=== PATIENT | male | born 1990 | race Caucasian/White ===

== ENCOUNTER 2020-07-25 20:25 | Emergency (ER) | payer MEDICAID, SELFPAY ==
[2020-07-25 20:26] VITALS: BP 132/60; PULSE 55; RESP 16; TEMP 36.5; O2SAT 100; BMI 22.1
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
[2020-07-25 21:25] VITALS: RESP 14
[2020-07-25 21:36] LABS: Absolute Lymphocyte Count 3.42 X10^3/uL (0.83-4.51); Absolute Neutrophil Count 3.7 X10^3/uL (2.0-7.7); Basophil# 0.08 X10^3/uL; Basophil% 0.9 % (0-1); Eosinophil# 0.49 X10^3/uL; Eosinophils% 5.6 % (0-5); Hematocrit 47.2 % (40-54); Hemoglobin 13.6 g/dL (13.0-16.5); Lymphocyte # 3.42 X10^3/ul (4.0); Lymphocyte % 38.9 % (19-41); Mean Corp Hgb Conc 28.8 g/dL (32-36); Mean Corpuscular Hgb 19.9 pg (27.0-32.0); Mean Platelet Vol. 11.5 fl (6.2-12.0); Monocyte% 12.5 % (0-10); NRBC Flagged by Analyzer 0 % (0-5); Neutrophil # 3.67 X10^3/uL (2.7-7.7); Neutrophil % 41.8 % (47-70); Platelet Count 336 K/mm3 (150-450); RBC Distribution Width CV 18.6 % (11.6-14.6); RBC Distribution Width SD 39.7 fl (35.1-43.9); Red Blood Count 6.84 M/mm3 (4.6-6.2); White Blood Count 8.8 K/mm3 (4.4-11.0)
[2020-07-25 22:00] VITALS: RESP 16
[2020-07-25 22:00] LABS: Anion Gap 5 (5-15); BUN 13 mg/dL (7-18); BUN/Creat Ratio 12.5 RATIO (10-20); Calcium,Total 8.9 mg/dL (8.5-10.1); Chloride 106 mmol/L (98-107); Creatinine, Serum 1.04 mg/dL (0.70-1.30); EST Glomerular Filtration Rate 89 mL/min (>60); Est Glom Filt Rate - Afr Amer 108 mL/min (>60); Estimated Creatinine Clearance 100.86 ml/min; Glucose 103 mg/dL (74-106); Potassium 3.6 mmol/L (3.5-5.1); Sodium Level 140 mmol/L (136-145)
[2020-07-25 22:01] LABS: Amphetamine Urine VISTA POSITIVE (<1000 ng/mL); Barbiturate Urine VISTA NEGATIVE (< 200 ng/mL); Benzodiazepine Urine VISTA NEGATIVE (< 200 ng/mL); Cocaine Urine VISTA NEGATIVE (< 300 ng/mL); Ecstacy Urine VISTA POSITIVE (< 500 ng/mL); Methadone Urine VISTA NEGATIVE (< 300 ng/mL); PCP Urine VISTA NEGATIVE (< 25 ng/mL); THC Urine VISTA POSITIVE (< 50 ng/mL); Vista UDS pH Range 6
--- NOTE | 2020-07-25 22:41 | ED.RN ---
CALLED CRISIS TO SEE THIS PT, WAITING ON A CALL BACK
[2020-07-26 00:42] VITALS: BP 133/85; PULSE 71; RESP 18; O2SAT 98
[2020-07-26 01:00] VITALS: RESP 14
[2020-07-26 02:00] VITALS: RESP 16
--- NOTE | 2020-07-26 02:12 | EKG12_ITS ---
Test Reason : MENTAL HEALTH Blood Pressure : / mmHG Vent. Rate : 063 BPM Atrial Rate : 063 BPM P-R Int : 130 ms QRS Dur : 094 ms QT Int : 416 ms P-R-T Axes : 071 079 072 degrees QTc Int : 425 ms Sinus rhythm with marked sinus arrhythmia Otherwise normal ECG Confirmed by VIV PEGUERO, JOSE GUADALUPE ([id number]), subeditor KIRK WINTER ([id number]) on 07/30/2020 9:52:02 AM Referred By: BB Confirmed By:JOSE GUADALUPE NAM MD
--- NOTE | 2020-07-26 02:18 | ED.RN ---
CRISIS WORKING ON PLACEMENT, GENERATIONS REQUESTED KEG, COVID, AND CPK TESTING. RELAYED TO [facility] AND REQUIRED DEPARTMENTS.
[2020-07-26 02:35] LABS: CPK Total, Creatine Kinase 66 U/L (39-308)
[2020-07-26 03:00] VITALS: RESP 14
[2020-07-26 06:00] VITALS: BP 138/90; PULSE 65; RESP 14; TEMP 36.1; O2SAT 100
== END 2020-07-26 07:28 ==
PROVIDERS: Emergency Medicine; Emergency Provider Emergency Medicine
DX: R45.851 Suicidal ideations (principal); F17.200 Nicotine dependence, unspecified, uncomplicated
CPT/HCPCS: 80048; 80307; 80320; 82550; 85025; 87635; 93005; 99284; G0480; U0003

== ENCOUNTER 2020-09-22 18:47 | Emergency (ER) | payer MEDICAID, SELFPAY ==
[2020-09-22 18:50] VITALS: BP 143/91; PULSE 98; RESP 16; TEMP 37; O2SAT 98; BMI 21.4
--- NOTE | 2020-09-22 19:30 | ED.VIS.GEN ---
History of Present Illness Chief Complaint: Ear Problem Detail of Chief Complaint: Bilateral ear pain Informant: Patient Onset: Month(s) - Greater than 1 year Current Severity: Moderate Maximum Severity: Moderate Narrative: Patient presents with bilateral ear pain for greater than 1 year. He states he has not seen a doctor for this. He denies respiratory symptoms. He is very elusive when answering questions. He does report using Q-tips to clean his ears but states he is not used those in several days. He states his ear should not still be inflamed. Past Medical History - Allergies and Home Meds Allergies/Adverse Reactions: Allergies No Known Allergies Allergy (Verified 09/22/20 18:49) Primary Care Physician: Care Physician,No Primary [Primary Care Provider] - Past Medical History: None Smoking Status: Current every day smoker Review of Systems General: Denies: Chills, Fever Eyes: Denies: Visual changes - bilaterally ENT: Reports: Bilateral ear pain Cardiovascular: Denies: Chest pain Respiratory: Denies: Dyspnea, Cough Gastrointestinal: Denies: Abdominal pain Musculoskeletal: Denies: Extremity Pain Skin: Denies: Wounds Neurological: Denies: Headache Hematologic: Denies: Easy bruising, Easy bleeding Allergy: Denies: Uticaria Physical Exam Vital Signs/Narrative: Vital Signs Temp Pulse Resp BP Pulse Ox 09/22/20 18:50 98.6 F 98 16 143/91 H 98 Inital Vital Signs reviewed: Yes General: Well nourished, Well developed Head: Normocephalic Eyes: Perrl, EOMI, - - Ear canals are slightly erythematous bilaterally. No significant edema. TMs are clear bilaterally. ENT: Moist mucous membranes Neck: Supple Cardiovascular: Regular rate, Regular rhythm Respiratory: No distress, CTA bilaterally Abdomen: Soft, Nontender Skin: Normal color Neurological: Alert, Oriented x3 Psychological: Normal affect Diagnostic/Tx/Re-eval - Medical Decision Making Patient has mild erythema to the bilateral ear canals. No sign of otitis media. He will be given neomycin eardrops. He is requesting a doctor look in his ear to the microscope and remove what ever is in there that needs to come out. I advised him at this time there is no evidence of foreign body or mass. We will treat him with antibiotic eardrops and have him follow-up with ENT if not improving. ED Disposition - Plan for ED Patient: Disposition: Home or Assisted Living Diagnosis: Otalgia of both ears Instructions: ED Earache Without Infection (Adult) Referrals: Naif Booth MD [STAFF PHYSICIAN] - 1 Week if not improving Additional Instructions: 4 drops to each ear three times a day for 1 week.
[2020-09-22] MEDS: Neomycin/Polymyxin/Dexameth 5ML OPTH.BTL 4 DRP OTIC (20:05)
== END 2020-09-22 20:16 | disposition home or self-care (01) ==
PROVIDERS: Emergency Provider Emergency Medicine
DX: H92.03 Otalgia, bilateral (principal); F17.200 Nicotine dependence, unspecified, uncomplicated
CPT/HCPCS: 99282

== ENCOUNTER 2020-09-22 21:00 | Emergency (ER) | payer MEDICAID, SELFPAY ==
[2020-09-22 18:50] VITALS: BMI 21.4
[2020-09-22 21:01] VITALS: BP 143/90; PULSE 85; RESP 16; TEMP 36.6; O2SAT 100; BMI 21.1
--- NOTE | 2020-09-22 21:27 | ED.RN ---
Pt states he hears voices and sometimes sees things. When asked if they (voices) say things, pt is very vague in his answers and states they sometimes say things here and there.
--- NOTE | 2020-09-22 21:59 | ED.VISSUMM ---
- ER Visit Summary Date of Service: 09/22/20 Chief Complaint: Hearing voices History of Present Illness: The patient is a 30 M with no primary care physician or psychiatrist. He reports that he has been hearing voices for approximate the past 14 months. He states that these are not command hallucinations. He denies any suicidal homicidal ideation. Reports that he was hospitalized approximately 1 month ago and was placed on trazodone, Abilify, BuSpar, and Vistaril and it did not help so he stopped taking them. He has not followed up with the counseling center. Physical Examination: Vitals: Stable. Afebrile. General: Well-nourished and well-developed. Head: Normocephalic atraumatic. Neck: Supple, no lymphadenopathy. No JVD. Nontender. Cardiovascular: Regular rate and rhythm. No murmurs. Respiratory: No respiratory distress. Clear to auscultation bilaterally. Abdominal: Soft, nontender, nondistended, normal bowel sounds. No guarding, rebound, or peritoneal signs. Back: Nontender. Extremities: Nontender, no edema. Skin: Normal color, no rash. Neurologic: Alert and oriented ?3. Cranial nerves II through XII are intact. Normal strength and sensation. Mental status exam: Patient appears their stated age. Good posture and grooming. Good eye contact. Normal rate, volume, and latency of speech. No suicidal or homicidal ideation. No visual hallucinations. Flow of thought is logical. Insight and judgment is fair. Emergency Department Course and Treatment: Patient is resting comfortably without complaint. Treatment Plan: Patient was discussed with the counseling center. At this time he does not seem to be a threat to himself or anyone else. He will be discharged with instructions to follow-up with them as soon as possible. Return to the emergency department for any worsening symptoms. Disposition: To home in improved and stable condition. Impression: 1. Auditory hallucinations. This note was generated with [employer] dictation software. It may contain incorrect words, spelling, and punctuation that were not noted in review of the chart prior to signing ED Disposition - Plan for ED Patient: Disposition: Home or Assisted Living Instructions: ED Schizophrenia, General Referrals: Counseling,Center [GROUP OF PHYSICIANS] - As soon as possible
== END 2020-09-22 22:51 | disposition home or self-care (01) ==
LOC: ED 21:30
PROVIDERS: Emergency Provider Emergency Medicine
DX: R44.0 Auditory hallucinations (principal); H92.03 Otalgia, bilateral; F17.200 Nicotine dependence, unspecified, uncomplicated
CPT/HCPCS: 99282

== ENCOUNTER 2021-01-10 10:10 | Emergency (ER) | payer MEDICAID, SELFPAY ==
[2021-01-10 10:12] VITALS: BP 129/92; PULSE 93; RESP 16; TEMP 36.7; O2SAT 100; BMI 23.6
--- NOTE | 2021-01-10 10:46 | EKG12_ITS ---
Test Reason : SORE THROAT Blood Pressure : / mmHG Vent. Rate : 067 BPM Atrial Rate : 067 BPM P-R Int : 144 ms QRS Dur : 094 ms QT Int : 420 ms P-R-T Axes : 076 057 057 degrees QTc Int : 443 ms Normal sinus rhythm with sinus arrhythmia Normal ECG Confirmed by VIV PEGUERO, JOSE GUADALUPE ([id number]), legal editor KIRK WINTER ([id number]) on 01/13/2021 8:52:14 AM Referred By: CARMELO Confirmed By:JOSE GUADALUPE NAM MD
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
[2021-01-10 11:15] LABS: Absolute Lymphocyte Count 3.12 X10^3/uL (0.83-4.51); Basophil# 0.11 X10^3/uL; Basophil% 1.3 % (0-1); Eosinophil# 0.36 X10^3/uL; Eosinophils% 4.2 % (0-5); Hematocrit 50.7 % (40-54); Hemoglobin 14.7 g/dL (13.0-16.5); Lymphocyte # 3.12 X10^3/ul (4.0); Lymphocyte % 36.6 % (19-41); Mean Corpuscular Hgb 19.9 pg (27.0-32.0); Mean Corpuscular Volume 68.6 fL (80-94); Mean Platelet Vol. 9.9 fl (6.2-12.0); Monocyte# 0.86 X10^3/uL; Monocyte% 10.1 % (0-10); NRBC Flagged by Analyzer 0 % (0-5); Neutrophil # 4.01 X10^3/uL (2.7-7.7); Neutrophil % 47.1 % (47-70); Platelet Count 394 K/mm3 (150-450); RBC Distribution Width CV 17.4 % (11.6-14.6); Red Blood Count 7.39 M/mm3 (4.6-6.2); White Blood Count 8.5 K/mm3 (4.4-11.0)
--- NOTE | 2021-01-10 11:20 | RAD_ITS ---
STUDY: X-RAY CHEST REASON FOR EXAM: Male, 30 years old. cough TECHNIQUE: Single AP portable view of the chest. COMPARISON: None. FINDINGS: The lungs are clear and expanded. There is no demonstrated pleural abnormality. Normal size heart. Normal mediastinum and micheline. Normal visualized pulmonary arteries. Normal visualized aortic arch and descending thoracic aorta. Normal visualized thoracic spine. Normal visualized ribs, clavicles, and shoulders. There is no demonstrated abnormality of the visualized soft tissue structures of the upper abdomen. RAD/Chest 1 View (Portable) IMPRESSION: Normal x-ray examination of the chest. Electronically Signed: Lyle Schmid MD at 11:40 EDT Tel , Service support ,
--- NOTE | 2021-01-10 11:20 | RAD_ITS ---
STUDY: X-RAY - SOFT TISSUE NECK REASON FOR EXAM: Male, 30 years old. sore throat TECHNIQUE: 2 view(s) of the neck were obtained. COMPARISON: None. FINDINGS: Normal visualized nasopharynx, oropharynx, hypopharynx. Normal epiglottis. Normal visualized subglottic tracheal air column. Normal prevertebral soft tissue structures. Normal visualized osseous structures. The soft tissue structures are unremarkable. RAD/Neck for Soft Tissue IMPRESSION: Normal x-ray soft tissue neck. Electronically Signed: Lyle Schmid MD at 11:40 EDT Tel , Service support ,
[2021-01-10 11:36] LABS: AST(SGOT) 75 U/L (15-37); Alanine Aminotransfer ALT/SGPT 250 U/L (16-61); Albumin, Serum 4.2 g/dL (3.2-5.0); Alkaline Phosphatase 103 U/L (45-117); Anion Gap 3 (5-15); BUN 13 mg/dL (7-18); BUN/Creat Ratio 11.2 RATIO (10-20); Calcium,Total 9.1 mg/dL (8.5-10.1); Chloride 104 mmol/L (98-107); Creatinine, Serum 1.16 mg/dL (0.70-1.30); EST Glomerular Filtration Rate 78 mL/min (>60); Est Glom Filt Rate - Afr Amer 95 mL/min (>60); Estimated Creatinine Clearance 93.12 ml/min; Globulin 4.1 g/dL (2.2-4.2); Glucose 94 mg/dL (74-106); Lipase 29 U/L (73-393); Potassium 3.7 mmol/L (3.5-5.1); Protein, Total 8.3 g/dL (6.4-8.2); Sodium Level 137 mmol/L (136-145)
--- NOTE | 2021-01-10 12:05 | DCINST.ED_ITS ---
ED Disposition - Plan for ED Patient: Instructions: ED Pharyngitis, Viral Referrals: Cj Ricketts WATERSHED ENGINEER, WATERSHED ENGINEER-C [Primary Care Provider] -
--- NOTE | 2021-01-10 12:05 | ED.DEP ---
ED Disposition - Plan for ED Patient: Instructions: ED Pharyngitis, Viral Referrals: Cj Ricketts SOLE ROUNDING MACHINE OPERATOR, SOLE ROUNDING MACHINE OPERATOR-C [Primary Care Provider] -
[2021-01-10 12:20] VITALS: BP 139/95; PULSE 58; RESP 15
[2021-01-10] MEDS: dexAMETHasone 4 MG Tablet PO (12:20)
== END 2021-01-10 12:23 | disposition home or self-care (01) ==
LOC: ED 11:41
PROVIDERS: Emergency Provider Emergency Medicine; PCP Nurse Practitioner Primary Care
DX: J02.9 Acute pharyngitis, unspecified (principal); F17.200 Nicotine dependence, unspecified, uncomplicated; Z87.74 Personal history of (corrected) congenital malformations of heart and circulatory system
CPT/HCPCS: 70360; 71045; 80053; 83690; 84484; 85025; 87077; 87426; 87880; 93005; 99282

== ENCOUNTER 2021-06-11 21:54 | Emergency (ER) | payer MEDICAID, SELFPAY ==
[2021-06-11 21:55] VITALS: BP 148/89; PULSE 85; RESP 18; TEMP 36.5; O2SAT 99; BMI 23.6
[2021-06-11 22:13] LABS: Bacteria 0 SEEN /hpf (None Seen); Mucous, Urine 0 SEEN /hpf (<or=2+); Red Blood Cells-Urine 0 SEEN /hpf (0-5); Squamous Epithelial Cells - UA 0 SEEN /hpf (0-5); White Blood Cells 0 SEEN /hpf (0-5)
[2021-06-11 22:17] LABS: Color, Urine Yellow (Yellow); Glucose, Dipstick Normal (Normal); Ketone-Dipstick Negative (Negative); Leukocyte Esterase-Dipstick 25 /ul (Negative); Nitrite-Dipstick Negative (Negative); Occult Blood-Urine Negative /ul (Negative); Protein-Dipstick 15 mg/dl (Negative); Urine Bilirubin Dipstick Negative (Negative); Urine Clarity Clear (Clear); Urine Urobilinogen Normal (Normal)
--- NOTE | 2021-06-11 23:50 | EX.ED.GUMALE ---
HPI History of Present Illness Chief Complaint: Male Pain/Injury Informant: patient Pain Onset: Month(s) (1+) Context: - (unk onset) Timing: Continuous Narrative Narrative: Patient states he feels like something is moving around in my scrotum. He denies any pain, problems urinating, fevers, abdominal pain. He denies any injury. He denies any hematuria. He states he occasionally feels the scrotum and something feels different and abnormal about it. PFSH PFSH no medical history Home Medications buspirone 15 mg PO BID 01/10/21 [History Last Taken Unknown] hydroxyzine pamoate 100 mg PO BID PRN 01/10/21 [History Last Taken Unknown] trazodone 50 mg PO QHS 01/10/21 [History Last Taken Unknown] Allergy/AdvReac Type Severity Reaction Status Date / Time No Known Allergies Allergy Verified 06/11/21 21:57 Social History Smoking Status: Current every day smoker ROS ROS ED Constitutional Constitutional ED: Denies chills or fever(s) Eyes Eyes: Denies change in vision or diplopia ENT ENT ED: Denies rhinorrhea or sore throat Cardiovascular Cardiovascular: Denies chest pain or palpitations Respiratory/Chest Respiratory/Chest: Denies cough or dyspnea Gastrointestinal Gastrointestinal: Denies abdominal pain, diarrhea, nausea or vomiting Genitourinary Genitourinary ED: Reports as per HPI; Denies dysuria or hematuria Musculoskeletal Musculoskeletal: Denies back pain or neck pain Integumentary Denies abscess or rash Neurologic Neurologic: Denies headache(s), paresthesias or weakness Psychiatric Psychiatric: Denies anxiety or suicidal thoughts EXAM Physical Exam Const Vital Signs: 06/11/21 21:55 Temperature 97.7 F L Temperature Source Temporal Pulse Rate 85 Respiratory Rate 18 Blood Pressure 148/89 H Blood Pressure Mean 108 Pulse Ox 99 Oxygen Delivery Method Room Air Positive well nourished and well developed General Appearance ED: well developed and NAD Neck full ROM and supple Narrative: Normal scrotum. Normal nontender testicles. Normal nontender epididymis bilaterally. No palpable mass or hydrocele, the discomfort patient feels is central in the scrotum between the testicles. No overlying erythema, blue dot sign, or obvious palpable mass. Neuro oriented x3, CN's II-XII intact bilaterally and no sensory deficits noted Sensorium / Orientation: awake and alert Motor Exam: strength 5/5 throughout Skin no rashes or lesions noted and no wounds MDM MDM MDM Narrative Medical decision making narrative: Patient states he wants an ultrasound. In my opinion this is not an emergent condition, I basically feel that his exam is normal. I saw him right before ultrasound the left and I think it would be reasonable to set him up for an outpatient 1, he also needs an outpatient PCP. He is set up for both. Lab Data Labs: Laboratory Results - last 24 hr 06/11/21 22:08 Urine Color Yellow Urine Clarity Clear Urine pH 6.0 Ur Specific [place] 1.020 Urine Protein 15 H Urine Glucose (UA) Normal Urine Ketones Negative Urine Occult Blood Negative Urine Nitrite Negative Urine Bilirubin Negative Urine Urobilinogen Normal Ur Leukocyte Esterase 25 H Urine RBC 0 SEEN Urine WBC 0 SEEN Ur Squamous Epith Cells 0 SEEN Urine Bacteria 0 SEEN Urine Mucus 0 SEEN Discharge Plan Triage Chief Complaint: Male Pain/Injury ED Provider: Jeremie Castillo Dx/Rx/DC Orders Clinical Impression: Scrotal pain Instructions: Treating Varicocele Prescriptions: No Action trazodone 50 MG tablet 50 mg PO QHS RF: 0 hydroxyzine pamoate 50 MG capsule 100 mg PO BID PRN RF: 0 buspirone 15 MG tablet 15 mg PO BID RF: 0 Other Ambulatory Orders: Testicular with Arterial Flow (Routine) Timeframe: 1 Day Facility: [facility] - Location: [facility] Ordered By: Dr. Jeremie Castillo Primary Care Provider: Care Physician,No Primary Referrals: Coral Geronimo MD [STAFF PHYSICIAN] - (for primary care) Care Physician,No Primary [Primary Care Provider] - Disposition Disposition: Home, Self Care
--- NOTE | 2021-06-12 00:05 | ED.RN ---
PT walked out after registration. merchandise clerk attempted to keep PT into room for discharge instructions but was unable.
== END 2021-06-12 00:05 | disposition home or self-care (01) ==
PROVIDERS: Emergency Provider Emergency Medicine
DX: N50.82 Scrotal pain (principal); F17.200 Nicotine dependence, unspecified, uncomplicated
CPT/HCPCS: 81001; 99282

== ENCOUNTER 2021-08-27 15:09 | Emergency (ER) | payer MEDICAID, SELFPAY ==
[2021-08-27 15:10] VITALS: BP 138/85; PULSE 83; RESP 17; TEMP 36.1; O2SAT 100; BMI 23.0
--- NOTE | 2021-08-27 15:19 | EX.ED.DYSGE1 ---
HPI History of Present Illness Chief Complaint: General Illness Informant: patient Narrative Narrative: 30-year-old male states for the past several days has had a loss of smell and taste. He notes a slight cough and sore throat. Denies any diarrhea fevers or chills. Slight headache. He is not vaccinated against Covid. He occasionally smokes. PFSH PFSH Home Medications buspirone 15 mg PO BID 01/10/21 [History Last Taken Unknown] hydroxyzine pamoate 100 mg PO BID PRN 01/10/21 [History Last Taken Unknown] trazodone 50 mg PO QHS 01/10/21 [History Last Taken Unknown] Allergy/AdvReac Type Severity Reaction Status Date / Time No Known Allergies Allergy Verified 08/27/21 15:10 Social History (Updated 08/27/21 @ 15:[address] Amado Cm, DO) current gender identity: male Smoking Status: Current every day smoker tobacco type: cigarettes ROS ROS ED Constitutional Constitutional ED: Denies chills, fever(s), sweats or weight loss Eyes Eyes: Denies change in vision or diplopia ENT ENT ED: Reports sore throat; Denies ear pain or rhinorrhea Cardiovascular Cardiovascular: Denies chest pain, orthopnea, palpitations or racing heartbeat Respiratory/Chest Respiratory/Chest: Reports cough; Denies dyspnea or orthopnea Gastrointestinal Gastrointestinal: Denies abdominal pain, diarrhea, nausea or vomiting Genitourinary Genitourinary ED: Denies dysuria, hematuria or urinary frequency Musculoskeletal Musculoskeletal: Reports myalgias; Denies arthralgias Integumentary Denies abscess or rash Neurologic Neurologic: Reports headache(s); Denies weakness Psychiatric Psychiatric: Denies anxiety, depression, suicidal ideation or suicidal thoughts Endocrine Endocrinology: Denies polydipsia, polyphagia or polyuria Allergic/Immunologic Allergic/Immunologic ED: Denies mouth swelling, tongue swelling or urticaria EXAM Physical Exam Const Vital Signs: 08/27/21 15:10 Temperature 97.0 F L Temperature Source Temporal Pulse Rate 83 Respiratory Rate 17 Blood Pressure 138/85 H Blood Pressure Mean 102 Pulse Ox 100 Oxygen Delivery Method Room Air Positive well nourished and well developed General Appearance ED: well developed HEENT Reports normocephalic, head/scalp atraumatic, TM's clear and moist mucous membranes trauma Tympanic Membrane ED: Yes TM's clear Eyes PERRL and EOMs intact bilaterally Neck no lymphadenopathy, supple and no JVD Resp normal respiratory effort and clear to auscultation bilaterally Cardio regular rate, regular rhythm and no murmurs GI normal to inspection, nondistended, normoactive bowel sounds and non-tender Palpation: soft Back/Spine no CVA tenderness and normal ROM Extremity normal to inspection General Extremety ED: Negative for edema General Extremity: Negative for edema Neuro oriented x3 and CN's II-XII intact bilaterally Sensorium / Orientation: alert Motor Exam: strength 5/5 throughout Psych mental status grossly normal Mood & Affect: Negative for depressed or tearful Skin no rashes or lesions noted and no wounds MDM MDM MDM Narrative Medical decision making narrative: My interpretation of the chest x-ray is no acute process. Covid swab was obtained Discharge Plan Triage Chief Complaint: General Illness ED Provider: Amado Cm Dx/Rx/DC Orders Prescriptions: No Action trazodone 50 MG tablet 50 mg PO QHS RF: 0 hydroxyzine pamoate 50 MG capsule 100 mg PO BID PRN RF: 0 buspirone 15 MG tablet 15 mg PO BID RF: 0 Primary Care Provider: Care Physician,No Primary
--- NOTE | 2021-08-27 15:30 | RAD_ITS ---
STUDY: X-RAY CHEST REASON FOR EXAM: Male, 30 years old. Cough TECHNIQUE: Single AP portable view of the chest. COMPARISON: Comparison is made with prior study 01/10/2021. FINDINGS: The lungs are clear and expanded. There is no demonstrated pleural abnormality. Normal size heart. Normal mediastinum and micheline. Normal visualized pulmonary arteries. Normal visualized aortic arch and descending thoracic aorta. Normal visualized thoracic spine. Normal visualized ribs, clavicles, and shoulders. There is no demonstrated abnormality of the visualized soft tissue structures of the upper abdomen. RAD/Chest 1 View (Portable) IMPRESSION: Normal x-ray examination of the chest. Electronically Signed: Wyatt Ring MD at 15:42 EDT , Service support ,
[2021-08-27 16:23] VITALS: RESP 16
--- NOTE | 2021-08-27 16:23 | ED.RN ---
REVIEWED D/C INSTRUCTIONS, FOLLOW UP CARE, AND S/S THAT WOULD WARRANT A RETURN TO THE ED WITH PT. PT VERBALIZED AN UNDERSTANDING AND DENIES FURTHER QUESTIONS FOR THIS RN. PT SKIN P/W/D, RESP EVEN AND UNLABORED, PT A&O X 3, NO DISTRESS NOTED. PT AMBULATED OUT OF ED, GAIT STEADY.
== END 2021-08-27 16:24 | disposition home or self-care (01) ==
PROVIDERS: Emergency Provider Emergency Medicine
DX: R43.8 Other disturbances of smell and taste (principal); R05.9 Cough, unspecified; J02.9 Acute pharyngitis, unspecified; F17.210 Nicotine dependence, cigarettes, uncomplicated
CPT/HCPCS: 71045; 87426; 99282

== ENCOUNTER 2021-09-01 09:04 | Emergency (ER) | payer MEDICAID, SELFPAY ==
[2021-09-01 09:06] VITALS: BP 146/91; PULSE 81; RESP 18; TEMP 35.6; O2SAT 100; BMI 21.5
--- NOTE | 2021-09-01 10:25 | EX.ED.DYSGE1 ---
HPI History of Present Illness Chief Complaint: Lower Extremity Injury Detail of Chief Complaint: Mental health issue Informant: patient Onset/Context/Timing Onset: Today Context: Gradual Onset Timing: Continuous Current Severity: Mild Maximum Severity: Mild Narrative Narrative: 30-year-old male states that either his appendix or spleen is ruptured and is leaking fluid into his legs. He believes his feet are necrotic and need eventual surgery. On exam the patient has no medical issue this appears to be a mental health issue. Prior similar symptoms: No Recent Illness/Hospitalization: No PFSH PFSH Home Medications buspirone 15 mg PO BID 01/10/21 [History Last Taken Unknown] hydroxyzine pamoate 100 mg PO BID PRN 01/10/21 [History Last Taken Unknown] trazodone 50 mg PO QHS 01/10/21 [History Last Taken Unknown] Allergy/AdvReac Type Severity Reaction Status Date / Time No Known Allergies Allergy Verified 09/01/21 10:45 Social History Smoking Status: Current every day smoker tobacco type: cigarettes ROS ROS ED ROS Narrative Denies recent illness. Review of Systems ROS Unobtainable: Denies due to encephalopathy Constitutional Constitutional ED: Denies chills or fever(s) Eyes Eyes: Denies change in vision ENT ENT ED: Denies ear pain or sore throat Cardiovascular Cardiovascular: Denies chest pain Respiratory/Chest Respiratory/Chest: Denies cough or dyspnea Gastrointestinal Gastrointestinal: Denies abdominal pain, diarrhea, nausea or vomiting Genitourinary Genitourinary ED: Denies dysuria Musculoskeletal Musculoskeletal: Denies myalgias Integumentary Denies rash Neurologic Neurologic: Denies headache(s) Psychiatric Psychiatric: Denies depression, suicidal ideation or suicidal thoughts Endocrine Endocrinology: Denies polyuria Allergic/Immunologic Allergic/Immunologic ED: Denies urticaria EXAM Physical Exam Narrative Exam Narrative: 30-year-old male no acute distress vital signs stable afebrile. He does not look septic or toxic. His pulse ox 9% on room air no hypoxia. H EENT exam unremarkable. Moist his membranes. No trauma. Neck nontender no trauma. No lymphadenopathy. Lungs clear to auscultation bilaterally. Heart regular rhythm no murmur rate about 80. Chest wall nontender. Abdomen soft nontender. He is moving all 4 extremities are neurovascularly intact. They are nontender there is no edema. 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 He has normal DP pulses bilaterally. Back nontender. Skin unremarkable except multiple tattoos. Neurologically is awake and alert with no focal motor deficits. Patient has an odd affect. Consistent with underlying psychiatric illness. Const Vital Signs: 09/01/21 09:06 Temperature 96.1 F L Temperature Source Temporal Pulse Rate 81 Respiratory Rate 18 Blood Pressure 146/91 H Blood Pressure Mean 109 Pulse Ox 100 Oxygen Delivery Method Room Air Positive well nourished and well developed; Negative for obese, cachectic, contractures or unkempt General Appearance ED: well developed and NAD; Negative for unkempt, cachectic, contractures, cyanotic or diaphoretic Nutritional Appearance: Negative for cachectic or obese HEENT Reports moist mucous membranes Negative for trauma or tenderness Eyes PERRL and EOMs intact bilaterally Neck no lymphadenopathy, supple and no JVD General: Negative for tenderness Chest Wall inspection of chest normal and palpation of chest normal Resp normal respiratory effort and clear to auscultation bilaterally Effort and Inspection: pain with movement Auscultation: Negative for rales, rhonchi or wheezes Cardio regular rate, regular rhythm, S1 normal heart sound, S2 normal heart sound and no murmurs Rate: Negative for tachycardic GI normal to inspection, nondistended, normoactive bowel sounds, non-tender, non-distended and no masses Inspection: Negative for abdominal distention Auscultation: normoactive bowel sounds Palpation: soft; Negative for tender, guarding or rebound tenderness present Back/Spine no CVA tenderness Cervical Spine: Negative for cervical spine tenderness Thoracic Spine / Upper Back: Negative for thoracic spinal tenderness or paraspinal muscle tenderness Lumbar Spine / Lower Back: Negative for lumbar spinal tenderness Extremity normal to inspection General Extremety ED: Negative for edema or tenderness General Extremity: Negative for edema Neuro oriented x3, CN's II-XII intact bilaterally and no sensory deficits noted Sensorium / Orientation: alert; Negative for orientation impaired, lethargic or stuporous Motor Exam: strength 5/5 throughout Psych mental status grossly normal Psych Narrative: Patient appears to have underlying psychiatric illness. Appearance: Negative for unkempt Mood & Affect: Negative for depressed, anxious or tearful Skin no rashes or lesions noted and no wounds MDM MDM MDM Narrative Medical decision making narrative: 30-year-old male that believes his spleen or appendix is ruptured or leaking fluid in his legs and believes he needs emergent foot surgery. His exam is benign. This appears to be underlying psychiatric illness or related to drug use but he denies using drugs other than smoking marijuana. I will have our social service agency director speak with the patient. Patient the social service agency director went and evaluated the patient a left without being discharged. 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 Lab Data Attestation: I reviewed the patient's lab results. Lab results narrative: CBC White count 13.9. Hemoglobin 13.8. Electrolytes unremarkable gap of 6 normal BUN and creatinine. Glucose 107. Tox screen negative except positive for amphetamines and methamphetamines. Alcohol is negative. Labs: Laboratory Results - last 24 hr 09/01/21 09/01/21 09/01/21 10:57 11:07 11:07 WBC 13.9 H RBC 6.81 H Hgb 13.8 Hct 45.7 MCV 67.1 L MCH 20.3 L MCHC 30.2 L RDW Std Deviation 36.2 RDW Coeff of Pravin 16.8 H Plt Count 341 MPV 10.6 Immature Gran % (Auto) 0.500 Neut % (Auto) 59.7 Lymph % (Auto) 28.2 Stan[place] % (Auto) 10.2 H Eos % (Auto) 0.9 Baso % (Auto) 0.5 Absolute Neuts (auto) 8.3 H Absolute Lymphs (auto) 3.91 Nucleated RBC % 0 Sodium 138 Potassium 3.5 Chloride 106 Carbon Dioxide 26.0 Anion Gap 6 BUN 10 Creatinine 0.90 Estim Creat Clear Calc 115.50 Est GFR (MDRD) Af Amer 126 Est GFR (MDRD) Non-Af 104 BUN/Creatinine Ratio 11.0 Glucose 107 H Calcium 9.0 Urine Opiates Screen NEGATIVE Urine Methadone Screen NEGATIVE Ur Barbiturates Screen NEGATIVE Ur Phencyclidine Scrn NEGATIVE Ur Amphetamines Screen POSITIVE H U Methamphetamin-MDMA POSITIVE H U Benzodiazepines Scrn NEGATIVE Urine Cocaine Screen NEGATIVE U Cannabinoids Screen NEGATIVE Ur Drug Screen Comment Ethyl Alcohol 09/01/21 11:07 WBC RBC Hgb Hct MCV MCH MCHC RDW Std Deviation RDW Coeff of Pravin Plt Count MPV Immature Gran % (Auto) Neut % (Auto) Lymph % (Auto) Stan[place] % (Auto) Eos % (Auto) Baso % (Auto) Absolute Neuts (auto) Absolute Lymphs (auto) Nucleated RBC % Sodium Potassium Chloride Carbon Dioxide Anion Gap BUN Creatinine Estim Creat Clear Calc Est GFR (MDRD) Af Amer Est GFR (MDRD) Non-Af BUN/Creatinine Ratio Glucose Calcium Urine Opiates Screen Urine Methadone Screen Ur Barbiturates Screen Ur Phencyclidine Scrn Ur Amphetamines Screen U Methamphetamin-MDMA U Benzodiazepines Scrn Urine Cocaine Screen U Cannabinoids Screen Ur Drug Screen Comment Ethyl Alcohol < 3.0 Discharge Plan Triage Chief Complaint: Lower Extremity Injury ED Provider: Sukumar Encarnacion Dx/Rx/DC Orders Prescriptions: No Action trazodone 50 MG tablet 50 mg PO QHS RF: 0 hydroxyzine pamoate 50 MG capsule 100 mg PO BID PRN RF: 0 buspirone 15 MG tablet 15 mg PO BID RF: 0 Primary Care Provider: Care Physician,No Primary
--- NOTE | 2021-09-01 10:48 | ED.RN ---
UPON ENTERING ROOM PT STATES I NEED TO GO TO SURGERY RIGHT NOW CAUSE MY APPENDIX IS LEAKING INTO MY FOOT AND CAUSING GANGRENE. PT THEN STATES IF I LOSE MY FOOT I WILL KILL MYSELF. DR THOMAS
[2021-09-01 11:19] LABS: Absolute Lymphocyte Count 3.91 X10^3/uL (0.83-4.51); Absolute Neutrophil Count 8.3 X10^3/uL (2.0-7.7); Basophil# 0.07 X10^3/uL; Basophil% 0.5 % (0-1); Eosinophil# 0.12 X10^3/uL; Eosinophils% 0.9 % (0-5); Hematocrit 45.7 % (40-54); Hemoglobin 13.8 g/dL (13.0-16.5); Lymphocyte # 3.91 X10^3/ul (0.83-4.51); Lymphocyte % 28.2 % (19-41); Mean Corp Hgb Conc 30.2 g/dL (32-36); Mean Corpuscular Hgb 20.3 pg (27.0-32.0); Mean Corpuscular Volume 67.1 fL (80-94); Mean Platelet Vol. 10.6 fl (6.2-12.0); Monocyte# 1.41 X10^3/uL; Monocyte% 10.2 % (0-10); NRBC Flagged by Analyzer 0 % (0-5); Neutrophil # 8.29 X10^3/uL (2.7-7.7); Neutrophil % 59.7 % (47-70); Platelet Count 341 K/mm3 (150-450); RBC Distribution Width CV 16.8 % (11.6-14.6); RBC Distribution Width SD 36.2 fl (35.1-43.9); Red Blood Count 6.81 M/mm3 (4.6-6.2); White Blood Count 13.9 K/mm3 (4.4-11.0)
[2021-09-01 11:23] LABS: Amphetamine Urine VISTA POSITIVE (<1000 ng/mL); Barbiturate Urine VISTA NEGATIVE (< 200 ng/mL); Benzodiazepine Urine VISTA NEGATIVE (< 200 ng/mL); Cocaine Urine VISTA NEGATIVE (< 300 ng/mL); Ecstacy Urine VISTA POSITIVE (< 500 ng/mL); Methadone Urine VISTA NEGATIVE (< 300 ng/mL); PCP Urine VISTA NEGATIVE (< 25 ng/mL); THC Urine VISTA NEGATIVE (< 50 ng/mL); Vista UDS pH Range 5
[2021-09-01 11:35] LABS: Anion Gap 6 (5-15); BUN 10 mg/dL (7-18); Chloride 106 mmol/L (98-107); EST Glomerular Filtration Rate 104 mL/min (>60); Est Glom Filt Rate - Afr Amer 126 mL/min (>60); Glucose 107 mg/dL (74-106); Potassium 3.5 mmol/L (3.5-5.1); Sodium Level 138 mmol/L (136-145)
[2021-09-01 11:44] LABS: Alcohol, Blood (Medical)-Serum < 3.0 mg/dL
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
--- NOTE | 2021-09-01 14:45 | ED.RN ---
Addendum entered by Shalonda Berrios 09/01/21 14:49: AQUATICS LIFEGUARD also had voiced to this RN and another RN that the patient had touched her thigh. Original Note: AQUATICS LIFEGUARD came out of pt's room after obtaining blood draw, visably upset and in tears. She mentioned that patient very obviously was masturbating next to her. This RN entered room calmly and questioned patient as to if there would be a reason as to why the nurse's aid was so upset. Patient immediately started saying sorry. Did not offer more information. RN left the room. Social work, cupola charger insulation, physician, and resource officer notified.
--- NOTE | 2021-09-01 22:12 | CM.ED ---
Per Officer Ambrose, patient was arrested for GSI and Indecent exposure for inappropriate interaction with staff today. Zully NOVAK
--- NOTE | 2021-09-04 14:28 | CM.ED ---
Late Entry from 09/01/21 Officer Ambrose indicated patient was charged with indecent exposure and GSI and currently in group home related to the incident in the hospital with staff. Zully NOVAK
== END 2021-09-01 14:50 | disposition home or self-care (01) ==
LOC: ED 11:02
PROVIDERS: Emergency Provider Emergency Medicine
DX: Z00.8 Encounter for other general examination (principal); F15.90 Other stimulant use, unspecified, uncomplicated; F12.90 Cannabis use, unspecified, uncomplicated; F17.210 Nicotine dependence, cigarettes, uncomplicated
CPT/HCPCS: 80048; 80307; 82077; 85025; 99282

== ENCOUNTER 2022-07-19 12:09 | Emergency (ER) | payer MEDICAID, SELFPAY ==
[2022-07-19 12:10] VITALS: BP 143/93; PULSE 90; RESP 14; TEMP 36.2; O2SAT 100; BMI 21.6
[2022-07-19] MEDS: Acetaminophen 500 MG Tablet 1000 MG PO (12:42)
--- NOTE | 2022-07-19 12:43 | EDS_ITS ---
HPI History of Present Illness Chief Complaint: Headache Informant: patient Onset/Context/Timing Onset: Today and Yesterday Context: Gradual Timing: Continuous Quality -Headache: Positive for Tightness; Negative for Similar Prior Headaches Current Severity: Moderate Maximum Severity: Moderate Associated Symptoms/Injury Associated Symptoms: Negative for Fever, Nausea, Vomiting, Sore Throat, Sinus Pressure, Numbness, Tingling, Preceding Aura, Visual Changes, Blurred Vision, Photophobia or Visual Loss Injury - RAMIREZ: Negative for Direct Trauma, Fall or Assault Narrative Narrative: 31-year-old male no stated past medical history other than he had some type of open heart surgery as a small child. He is unsure specifically for what. States he typically does not get headaches. He feels pressure over his whole head that began yesterday. Denies any fall injury or trauma. No fever or neck pain. No nausea vomiting or diarrhea. No weakness. No visual change. No family history of intracranial bleeds or aneurysms. He is on no blood thinners. Prior similar symptoms: No Recent Illness/Hospitalization: No PFSH PFSH Home Medications buspirone 15 mg tablet 15 mg PO BID 01/10/21 [History Last Taken Unknown] hydroxyzine pamoate 50 mg capsule 100 mg PO BID PRN 01/10/21 [History Last Taken Unknown] trazodone 50 mg tablet 50 mg PO QHS 01/10/21 [History Last Taken Unknown] amoxicillin 500 mg capsule 500 mg PO TID 10 days #30 caps 07/19/22 [Rx Last Taken Unknown] Allergy/AdvReac Type Severity Reaction Status Date / Time No Known Allergies Allergy Verified 07/19/22 12:10 Social History Smoking Status: Current every day smoker tobacco type: cigarettes ROS ROS ED ROS Narrative Headache. Review of Systems ROS Unobtainable: Denies due to encephalopathy Constitutional Constitutional ED: Denies chills Eyes Eyes: Denies blurry vision ENT ENT ED: Denies ear pain Cardiovascular Cardiovascular: Denies chest pain Respiratory/Chest Respiratory/Chest: Denies cough Gastrointestinal Gastrointestinal: Denies abdominal pain Genitourinary Genitourinary ED: Denies dysuria Musculoskeletal Musculoskeletal: Denies arthralgias Integumentary Denies abscess Neurologic Neurologic: Reports headache(s); Denies paresthesias or weakness Psychiatric Psychiatric: Denies anxiety Endocrine Endocrinology: Denies polydipsia Hematologic/Lymphatic Hematologic/Lymphatic: Denies easy bleeding Allergic/Immunologic Allergic/Immunologic ED: Denies mouth swelling EXAM Physical Exam Narrative Exam Narrative: 31-year-old male no acute distress. Vital signs stable afebrile. H EENT exam unremarkable. Pupils are reactive light. Extra motions are intact. No trauma. No swelling or tenderness. No facial droop. Neck nontender no meningismus. Lungs are clear to auscultation bilaterally. Heart regular rhythm no murmur. Rate about 90. Abdomen soft nontender. Moving all 4 extremities. 5/5 fruit and vegetable inspector strength. Dorsi plantarflexion intact. Neurologic exam normal. NIH is 0. Fingertip to nose within normal limits. Const Vital Signs: 07/19/22 12:10 07/19/22 14:23 Temperature 97.2 F L Temperature Source Temporal Pulse Rate 90 Respiratory Rate 14 16 Blood Pressure 143/93 H Blood Pressure Mean 109 Pulse Ox 100 Oxygen Delivery Method Room Air Positive well nourished and well developed; Negative for obese, cachectic or contractures General Appearance ED: well developed and NAD; Negative for cachectic, contractures, cyanotic or diaphoretic Nutritional Appearance: Negative for cachectic or obese HEENT Reports normocephalic and moist mucous membranes; Denies dry mucous membranes atraumatic; Negative for trauma, tenderness, temporal artery tenderness or vesicular rash Face and Sinus: Negative for sinus tenderness Mouth ED: No dry mucous membranes Mouth: No dry mucous membranes Eyes PERRL and EOMs intact bilaterally General Eye ED: Negative for pale conjunctiva or scleral icterus Neck no lymphadenopathy, supple, no meningeal signs and no JVD General: Negative for tenderness or other Resp normal respiratory effort and clear to auscultation bilaterally Effort and Inspection: Negative for retractions Auscultation: Negative for rales or rhonchi Cardio regular rate, regular rhythm, S1 normal heart sound, S2 normal heart sound and no murmurs Rate: Negative for bradycardia Rhythm: Negative for abnormal rhythm GI non-tender and non-distended Auscultation: normoactive bowel sounds Palpation: soft; Negative for firm, tender, guarding or rigid Back/Spine no CVA tenderness General Back: Negative for CVA tenderness Cervical Spine: Negative for cervical spine tenderness Thoracic Spine / Upper Back: Negative for thoracic spinal tenderness Lumbar Spine / Lower Back: Negative for lumbar spinal tenderness Extremity normal to inspection, full ROM and normal capillary refill General Extremety ED: Negative for edema or tenderness General Extremity: Negative for edema Neuro oriented x3 Sensorium / Orientation: awake, alert, oriented to person, oriented to place and oriented to time; Negative for orientation impaired, lethargic or stuporous Coordination / Balance: [id number] test normal and [id number] test normal Speech: speech normal Motor Exam: strength 5/5 throughout Psych mental status grossly normal Attitude: No agitated Mood & Affect: Negative for depressed, anxious or tearful Skin Lesions: no lesions Rashes: no rashes Trauma: Negative for abrasion MDM MDM MDM Narrative Medical decision making narrative: 31-year-old that does not typically get headaches. With a headache. Neurologic exam normal. CAT scan pending. Treated with p.o. Tylenol. Repeat exam patient doing well at 2:45 PM. Went over his CAT scan results. He is comfortable and discharged home. Fluids, rest, Tylenol and Motrin. If not improving start the prescription for amoxicillin. I explained to him that this may resolve on its own. He can use [id number] nasal decongestant. Start antibiotic amoxicillin if not improving in 3 to 5 days. Radiography Diagnostic Testing: Clinical Impression(s) from Imaging Studies Brain CT 07/19/22 12:55 IMPRESSION: Sinusitis. Electronically Signed: Wyatt Ring MD at 13:21 EDT Reading Location ID and State: [address] [place] [address] , Service support , CAT scan consistent with sinusitis. Discharge Plan Triage Chief Complaint: Headache ED Provider: Sukumar Encarnacion Dx/Rx/DC Orders Clinical Impression: Headache, Sinusitis Instructions: ED Sinus Headache, ED Sinusitis (No Antibiotics) Prescriptions: New amoxicillin 500 mg capsule 500 mg PO TID 10 Days Qty: 30 0RF No Action trazodone 50 MG tablet 50 mg PO QHS hydroxyzine pamoate 50 MG capsule 100 mg PO BID PRN buspirone 15 MG tablet 15 mg PO BID Primary Care Provider: Care Physician,No Primary Referrals: Koko Sharpe MD [Med Staff - [employer]] - 1 Week if not improving Care Physician,No Primary [Primary Care Provider] - Activity Restrictions/Additional Instructions: Plenty of fluids and rest. [id number] nasal spray for decongestant. Motrin and Tylenol for pain. Follow-up with your doctor if not improving. If not improving over the next 3 to 5 days you can start the antibiotic amoxicillin. Disposition Disposition: Home, Self Care
--- NOTE | 2022-07-19 12:55 | CT_ITS ---
STUDY: CT BRAIN WITHOUT CONTRAST REASON FOR EXAM: Male, 31 years old. Headache. RADIATION DOSAGE (If Supplied By Facility): CTDIvol = ( 47.06 ) mGy, DLP = ( 872.68 ) mGycm TECHNIQUE: Transaxial CT imaging of the brain was performed without administration of intravenous contrast material. Individualized dose optimization techniques were used for this CT. COMPARISON: No relevant priors. FINDINGS: Normal soft tissue structures. Normal calvarium. Normal size ventricles and extra-axial spaces for the patient''s age. Normal white matter tracts of the cerebral hemispheres. Normal basal ganglia and thalami. Normal brainstem. Normal cerebellum. There is no intracranial hemorrhage. There are no findings of an acute ischemic infarction. There is partial opacification of the right maxillary sinus. Partial opacification of the ethmoid sinuses bilaterally. Mucosal thickening along the anterior aspect of the right sphenoid sinus. CT/Brain/Head without Contrast IMPRESSION: Sinusitis. Electronically Signed: Wyatt Ring MD at 13:21 EDT ,
[2022-07-19 14:23] VITALS: RESP 16
== END 2022-07-19 14:59 | disposition home or self-care (01) ==
PROVIDERS: Emergency Provider Emergency Medicine; Visit Provider Emergency Medicine
DX: R51.9 Headache, unspecified (principal); J32.9 Chronic sinusitis, unspecified; F17.210 Nicotine dependence, cigarettes, uncomplicated
CPT/HCPCS: 70450; 99283

== ENCOUNTER 2022-07-29 13:32 | Emergency (ER) | payer MEDICAID, SELFPAY ==
[2022-07-29 13:33] VITALS: BP 121/101; PULSE 98; RESP 16; TEMP 36.6; O2SAT 95; BMI 22.2
[2022-07-29 15:41] VITALS: BP 148/78; PULSE 67; RESP 16; TEMP 37.2; O2SAT 98
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
--- NOTE | 2022-07-29 16:00 | RAD_ITS ---
STUDY: AP ABDOMEN X-RAY SERIES OF 1610 HOURS ON 07/29/2022 REASON FOR EXAM: 31-year-old male. Evaluate for an intestinal foreign body. TECHNIQUE: 2 AP views of the abdomen were submitted for interpretation. COMPARISON: None. FINDINGS: There is no evidence radiopaque foreign bodies in the abdomen or pelvis. There is mild constipation. No abdominal organomegaly. No abnormal intra-abdominal calcifications or collections of air. RAD/Abdomen Single View IMPRESSION: 1. No evidence of radiopaque foreign bodies in the region of the abdomen or pelvis. 2. Mild constipation. 3. No abnormal intra-abdominal calcifications or collections of air. 4. No organomegaly. Electronically Signed: Sacha Tena MD at 16:37 EDT ,
--- NOTE | 2022-07-29 17:02 | ED.RN ---
pt. comes to door looks both ways. and walks out the door.
== END 2022-07-29 17:05 | disposition left against medical advice (07) ==
PROVIDERS: Emergency Provider Emergency Medicine; Visit Provider Emergency Medicine
DX: K59.00 Constipation, unspecified (principal); F17.210 Nicotine dependence, cigarettes, uncomplicated
CPT/HCPCS: 74018; 99282

== ENCOUNTER 2023-02-25 06:25 | Emergency (ER) | payer MEDICAID, SELFPAY ==
[2023-02-25 06:28] VITALS: BP 140/92; PULSE 82; RESP 16; TEMP 36.4; O2SAT 98; BMI 21.9
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
[2023-02-25] MEDS: Smz/Tmp Ds Tablet 1 TABLET PO (06:49)
[2023-02-25 06:55] VITALS: BP 140/92; PULSE 82; RESP 16
== END 2023-02-25 06:56 | disposition home or self-care (01) ==
PROVIDERS: Emergency Provider Emergency Medicine; Visit Provider Emergency Medicine
DX: R44.1 Visual hallucinations (principal); L03.115 Cellulitis of right lower limb; L03.116 Cellulitis of left lower limb; F17.290 Nicotine dependence, other tobacco product, uncomplicated
CPT/HCPCS: 99283

== ENCOUNTER 2023-03-30 05:46 | Emergency (ER) | payer MEDICAID, SELFPAY ==
[2023-03-30 05:47] VITALS: BP 144/91; PULSE 80; RESP 18; TEMP 36.8; O2SAT 100; BMI 22.5
--- NOTE | 2023-03-30 07:23 | EX.ED.DYSGE1 ---
HPI History of Present Illness Chief Complaint: Cellulitis Informant: patient Onset/Context/Timing Onset: Month(s) Context: Gradual Onset Timing: Continuous Current Severity: Mild Maximum Severity: Mild Narrative Narrative: 32-year-old male no seen past medical history. States he has redness in both lower legs. This has been going on months. He has been evaluated for this before in emergency departments and has not been treated. He denies any fever or chills. He denies any injury. Prior similar symptoms: Yes Recent Illness/Hospitalization: No PFSH PFSH Medical History no medical history no medical history Allergy/AdvReac Type Severity Reaction Status Date / Time No Known Allergies Allergy Verified 02/25/23 06:26 Surgical History H/O heart surgery Social History Smoking Status: Current every day smoker tobacco type: e-cigarettes ROS ROS ED ROS Narrative Denies recent illness. Review of Systems ROS Unobtainable: Denies due to encephalopathy Constitutional Constitutional ED: Denies chills or fever(s) Eyes Eyes: Denies blurry vision ENT ENT ED: Denies ear pain Cardiovascular Cardiovascular: Denies chest pain Respiratory/Chest Respiratory/Chest: Denies cough or dyspnea Gastrointestinal Gastrointestinal: Denies abdominal pain Genitourinary Genitourinary ED: Denies dysuria or hematuria Integumentary Denies abscess Neurologic Neurologic: Denies headache(s) Psychiatric Psychiatric: Denies anxiety or depression Endocrine Endocrinology: Denies cold intolerance Hematologic/Lymphatic Hematologic/Lymphatic: Reports none Allergic/Immunologic Allergic/Immunologic ED: Denies mouth swelling or tongue swelling EXAM Physical Exam Narrative Exam Narrative: Well-appearing 32-year-old male. Vital signs stable and afebrile. He does not look septic or toxic. He is in no distress. H EENT exam unremarkable. Neck nontender. Lungs are clear. Heart regular rhythm no murmur. Abdomen soft nontender. Moving all 4 extremities. Calves are nontender without edema or cords. He has minimal redness to his lower legs anteriorly. This is not cellulitis. Its not hot nor tender nor warm to the touch. There is no lymphangitic streaking. There is no inguinal lymphadenopathy. He has normal range of motion to all joints of both lower legs. Normal motor strength. Skin is heavily tattooed. He is awake and alert. Answering questions and following commands. Const Vital Signs: 03/30/23 05:47 Temperature 98.2 F Temperature Source Temporal Pulse Rate 80 Respiratory Rate 18 Blood Pressure 144/91 H Blood Pressure Mean 108 Pulse Ox 100 Oxygen Delivery Method Room Air Positive well nourished and well developed; Negative for obese, cachectic, contractures or unkempt General Appearance ED: well developed and NAD; Negative for unkempt, cachectic, contractures, cyanotic or diaphoretic Nutritional Appearance: Negative for cachectic or obese HEENT Reports moist mucous membranes; Denies dry mucous membranes Negative for trauma Mouth ED: No dry mucous membranes Mouth: No dry mucous membranes Eyes PERRL and EOMs intact bilaterally General Eye ED: Negative for pale conjunctiva or scleral icterus Neck no lymphadenopathy, supple and no JVD General: Negative for tenderness Lymph Lymphatic: Negative for other Chest Wall inspection of chest normal and palpation of chest normal Chest: Negative for other Resp normal respiratory effort and clear to auscultation bilaterally Effort and Inspection: Negative for retractions Auscultation: Negative for rales, rhonchi or wheezes Cardio regular rate, regular rhythm, S1 normal heart sound, S2 normal heart sound and no murmurs GI normal to inspection, nondistended, normoactive bowel sounds, non-tender, non-distended and no masses Inspection: Negative for abdominal distention Auscultation: normoactive bowel sounds Palpation: soft; Negative for tender or guarding Bladder / Kidney Exam: No other Back/Spine no CVA tenderness General Back: Negative for CVA tenderness Cervical Spine: Negative for cervical spine tenderness Thoracic Spine / Upper Back: Negative for thoracic spinal tenderness Lumbar Spine / Lower Back: Negative for lumbar spinal tenderness Extremity normal to inspection General Extremety ED: Negative for edema or tenderness General Extremity: Negative for edema Neuro oriented x3 and CN's II-XII intact bilaterally Sensorium / Orientation: alert and orientation impaired; Negative for lethargic or stuporous Motor Exam: strength 5/5 throughout and general weakness Psych mental status grossly normal Appearance: Negative for unkempt Attitude: No agitated Mood & Affect: Negative for depressed Skin no rashes or lesions noted, no wounds and skin turgor normal Skin Narrative: Very minimal redness both lower extremities above the ankles. General Skin Exam: Negative for elasticity normal Lesions: No lesion noted Rashes: rashes noted Trauma: Negative for abrasion Wounds: Negative for wounds noted MDM MDM MDM Narrative Medical decision making narrative: 32-year-old male normal exam except he has minimal redness of the skin just above both ankles. Is not cellulitis. Does not appear to be any type of infection or allergic reaction. I explained to him that doing nothing to do at this time. History & Record Review Discussion w/independent historian: Patient Discharge Plan Triage Chief Complaint: Cellulitis ED Provider: Sukumar Encarnacion Dx/Rx/DC Orders Clinical Impression: Rash Primary Care Provider: Care Physician,No Primary Referrals: Maddi Sesay MD [Med Staff - Hearing Impaired Teacher] - As Needed Care Physician,No Primary [Primary Care Provider] - Activity Restrictions/Additional Instructions: Follow-up with a local primary care physician. This is not an infection you do not need antibiotics. Disposition Disposition: Home, Self Care
== END 2023-03-30 07:57 | disposition home or self-care (01) ==
PROVIDERS: Emergency Provider Emergency Medicine; Visit Provider Emergency Medicine
DX: R21 Rash and other nonspecific skin eruption (principal); F17.290 Nicotine dependence, other tobacco product, uncomplicated
CPT/HCPCS: 99282

== ENCOUNTER 2023-04-01 05:31 | Emergency (ER) | payer MEDICAID, SELFPAY ==
[2023-04-01 05:32] VITALS: BP 142/69; PULSE 56; RESP 18; TEMP 35.9; O2SAT 100; BMI 21.1
--- NOTE | 2023-04-01 05:42 | EX.ED.DYSGE1 ---
HPI History of Present Illness Chief Complaint: General Illness PFSH PFSH Home Medications NK 04/01/23 [History Last Taken Unknown] Allergy/AdvReac Type Severity Reaction Status Date / Time No Known Allergies Allergy Verified 04/01/23 05:34 Surgical History H/O heart surgery Social History Smoking Status: Current every day smoker tobacco type: e-cigarettes EXAM Physical Exam Const Vital Signs: 04/01/23 05:32 04/01/23 05:34 Temperature 96.7 F L Temperature Source Temporal Pulse Rate 56 L Respiratory Rate 18 Respiratory Effort Normal Blood Pressure 142/69 H Blood Pressure Mean 93 Pulse Ox 100 MDM [facility] Narrative Medical decision making narrative: HISTORY OF PRESENT ILLNESS: 32-year-old male here for evaluation for hypothermia. In for weeks of rash on bilateral feet. REVIEW OF SYSTEMS: Pertinent positives: Rash, hypothermia Pertinent negatives: Loss of sensation, fever, vomiting PHYSICAL EXAM: Nursing triage notes reviewed, Vital signs reviewed Constitutional: please see mdm HENT: MMM Abdomen: Soft, there is no tenderness, rigidity, rebound or guarding, no obvious peritoneal signs, no palpable pulsatile abdominal masses, no auscultated abdominal bruit : No CVAT Extremities: No edema Neuro: No focal neurological deficits, cranial nerves II through XII intact, 5/5 strength in all extremities. Intact sensation to light touch in all extremities, 2+ reflexes bilateral patella tendons. Normal gait. No ataxia. Skin: Slight abrasions noted to bilateral dorsal first digits of the foot. No obvious cellulitic changes, no crepitus bullae fluctuant induration MEDICAL DECISION MAKING: Chief Complaint: Concern for hypothermia External records reviewed: Recent ED visits for rash Factors affecting care: None none Social determinants of health: Undomiciled History obtained from others: Consults: None ALL IMAGES (IF OBTAINED) HAVE BEEN PERSONALLY REVIEWED AND INTERPRETED BY MYSELF. [facility] Narrative: Patient was hemodynamically stable, afebrile, nontoxic-appearing. He is not hypothermic. Rash not consistent with life-threatening etiology. The patient is appropriate for discharge. Patient is afebrile and nontoxic in appearance. The rash is currently without the appearance or clinical features to suggest a more emergent diagnosis such as SJS, HSP, TEN, meningococcemia, endocarditis, lyme's, necrotizing fascitis, RMSF, syphillis, cellulitis, scabies, herpes simplex or erythema multiform, etc. The patient and/or family, caregivers express understanding. The patient and/or family, caregivers agrees with the plan. Total critical care time today provided was at least 0 minutes. This excludes separately billable procedures. Critical care time (if documented) is secondary to the patient having high probability of clinically significant/life threatening deterioration in the patient's condition which required my urgent intervention. Shared decision making: I will have a discussion with the patient and or visitors regarding risk/benefits of further testing or admission. They will be made aware of of the risk/benefits inherent in this decision they will be given the opportunity to voice understanding. Discharge Plan Triage Chief Complaint: General Illness ED Provider: Valente Herrera Dx/Rx/DC Orders Clinical Impression: Rash Prescriptions: No Action NK Primary Care Provider: Care Physician,Caitlin Primary Referrals: Florida Martinez MD [Med Staff - Active Staff] - Activity Restrictions/Additional Instructions: Thank you for trusting us with your care today! Please take Tylenol (2 pills, 650 mg), ibuprofen (2 pills, 400 mg) every 6 hours as needed for pain and fever control. Please return to the emergency department if your symptoms change or worsen. Specifically you develop discoloration of your extremities, decreased sensation, decreased movement, change in color, cool temperature. Please follow with your primary care physician for further outpatient evaluation and management. Disposition Disposition: Home, Self Care
== END 2023-04-01 06:11 | disposition home or self-care (01) ==
PROVIDERS: Emergency Provider Emergency Medicine; Visit Provider Emergency Medicine
DX: R21 Rash and other nonspecific skin eruption (principal); F17.290 Nicotine dependence, other tobacco product, uncomplicated
CPT/HCPCS: 99282

== ENCOUNTER 2024-03-17 09:18 | Emergency (ER) | payer MEDICAID, SELFPAY ==
[2024-03-17 09:19] VITALS: BP 132/82; PULSE 85; RESP 14; TEMP 36.2; O2SAT 100; BMI 23.6
--- NOTE | 2024-03-17 10:03 | ED.VIS.LOWEX ---
HPI History of Present Illness HPI Narrative: Bilateral lower extremity redness below the knees. No prior history. No fever or chills. Denies being diabetic. Chief Complaint: Edema Informant: patient Occured/Mechanism Mechanism/Context: No injury and No blunt trauma Onset/Context/Timing Onset: Today and Yesterday Context: Gradual Onset Timing: Continuous Current Severity: Mild Maximum Severity: Mild Associated Symptoms Associated Symptoms: Negative for Parasthesia, Weakness or Loss of Funtion Narrative Narrative: 33-year-old male denies any past medical history. States the last 2 to 3 days he has had mild swelling in both lower extremities and redness. Denies fever or chills. No trauma or injury. Denies being diabetic. Prior similar symptoms: No Recent Illness/Hospitalization: No PFSH PFSH no medical history Home Medications ?Medication ?Instructions ?Recorded ?Last Taken ?Type cephalexin 500 mg capsule 500 mg PO Q6 #40 CAPSULES 03/17/24 Unknown Rx Allergy/AdvReac Type Severity Reaction Status Date / Time No Known Allergies Allergy Verified 03/17/24 09:21 Surgical History H/O heart surgery Social History Smoking Status: Current every day smoker tobacco type: e-cigarettes ROS ROS ED ROS Narrative Lower extremity redness. Review of Systems ROS Unobtainable: Denies due to encephalopathy Constitutional Constitutional ED: Denies chills or fever(s) Eyes Eyes: Denies blurry vision ENT ENT ED: Denies ear pain Cardiovascular Cardiovascular: Denies chest pain or palpitations Respiratory/Chest Respiratory/Chest: Denies cough or dyspnea Gastrointestinal Gastrointestinal: Denies abdominal pain Genitourinary Genitourinary ED: Denies dysuria or hematuria Musculoskeletal Musculoskeletal: Denies arthralgias or back pain Integumentary Denies abscess or Abrasions Neurologic Neurologic: Denies headache(s) Psychiatric Psychiatric: Denies anxiety or depression Endocrine Endocrinology: Denies polydipsia or polyphagia Hematologic/Lymphatic Hematologic/Lymphatic: Denies easy bleeding, easy bruising or lymphadenopathy Allergic/Immunologic Allergic/Immunologic ED: Denies mouth swelling, tongue swelling or urticaria EXAM Physical Exam Narrative Exam Narrative: Well-appearing 33-year-old male. Vital signs stable afebrile. Does not look septic toxic. No distress. H EENT exam unremarkable. Neck nontender. No lymphadenopathy. Lungs clear to auscultation bilaterally. Heart regular rhythm no murmur. Rate about 80. Chest wall and ribs nontender. Abdomen soft nontender. Moving all 4 extremities. Neurovascular intact. Both lower extremities have redness and warmth minimal edema consistent with cellulitis. Left leg is from the ankle just below the top just below the knee. Right leg is primarily by the ankle. Both feet are neurovascular intact. DP pulses. Able to wiggle his toes. Normal dorsi plantarflexion. Normal flexion extension of the hips and knees. No inguinal lymphadenopathy. No redness at or above the knees. Neurologically is awake and alert no focal motor deficits. Const Vital Signs: 03/17/24 09:19 Temperature 97.2 F L Temperature Source Temporal Pulse Rate 85 Respiratory Rate 14 Blood Pressure 132/82 H Blood Pressure Mean 98 Pulse Ox 100 Oxygen Delivery Method Room Air Positive well nourished and well developed; Negative for obese, cachectic, contractures or unkempt General Appearance ED: well developed and NAD; Negative for unkempt, cachectic or contractures Nutritional Appearance: Negative for cachectic or obese HEENT Reports moist mucous membranes normocephalic and atraumatic; Negative for trauma or tenderness Eyes PERRL General Eye ED: Negative for other Neck full ROM and supple Thyroid: Negative for tender Lymph Lymphatic: Negative for other Chest Wall inspection of chest normal and palpation of chest normal Chest: Negative for other Resp normal respiratory effort, no retractions and clear to auscultation bilaterally Effort and Inspection: Negative for pain with movement Auscultation: Negative for rales, rhonchi, wheezes or diminished lung sounds Cardio regular rate, regular rhythm, S1 normal heart sound, S2 normal heart sound and no murmurs Rate: Negative for bradycardia or tachycardic Rhythm: Negative for abnormal rhythm Bruits: Negative for other GI non-tender, non-distended and no masses Inspection: Negative for abdominal distention Auscultation: normoactive bowel sounds Palpation: soft; Negative for tender, guarding or rebound tenderness present Back/Spine no CVA tenderness General Back: Negative for CVA tenderness, swelling or other Cervical Spine: Negative for cervical spine tenderness Thoracic Spine / Upper Back: Negative for thoracic spinal tenderness Lumbar Spine / Lower Back: Negative for lumbar spinal tenderness Extremity full ROM; Negative for normal to inspection General Extremety ED: Yes edema; Negative for cyanosis General Extremity: edema; Negative for cyanosis Neuro oriented x3, CN's II-XII intact bilaterally, moves all extremities and no sensory deficits noted Sensorium / Orientation: alert, oriented to person, oriented to place and oriented to time; Negative for orientation impaired, confused, lethargic or stuporous Motor Exam: strength 5/5 throughout Psych mental status grossly normal Appearance: Negative for unkempt Speech: No other Mood & Affect: Negative for anxious Skin no wounds Lesions: no lesions Rashes: No no rashes MDM MDM MDM Narrative Medical decision making narrative: 33-year-old male bilateral lower extremity cellulitis. Clinically looks well. No fever. No other medical problems. Started on Keflex 500 mg 4 times daily for 10 days. Outpatient follow-up. Return if worse. He will be given his first dose antibiotic here. History & Record Review Discussion w/independent historian: Patient Additional record(s) reviewed:: No prior records Discharge Plan Triage Chief Complaint: Edema ED Provider: Sukumar Encarnacion Dx/Rx/DC Orders Clinical Impression: Cellulitis Instructions: ED Cellulitis Prescriptions: New cephalexin 500 mg capsule 500 mg PO Q6 Qty: 40 0RF Primary Care Provider: Care Physician,No Primary Referrals: Letty Collins MD [Med Staff - [employer]] - 3-5 Days Anne Gomez [Non-Staff] - 3-5 Days Care Physician,No Primary [Primary Care Provider] - Activity Restrictions/Additional Instructions: Antibiotic Keflex 1 pill 4 times a day for the next 10 days. Make sure to get it filled a day and start antibiotic. Follow-up with a local doctor to ensure this is improving. Return to the emergency department if you are feeling worse or it is getting worse. Tylenol and/or Motrin for pain. Print Language: Welsh Disposition Disposition: Home, Self Care
[2024-03-17] MEDS: Cephalexin 250 MG Capsule 500 MG PO (10:10)
[2024-03-17 10:13] VITALS: BP 132/82; PULSE 88; RESP 18; TEMP 36.4; O2SAT 98
== END 2024-03-17 10:14 | disposition home or self-care (01) ==
PROVIDERS: Emergency Provider Emergency Medicine; Visit Provider Emergency Medicine
DX: L03.115 Cellulitis of right lower limb (principal); L03.116 Cellulitis of left lower limb; F17.290 Nicotine dependence, other tobacco product, uncomplicated
CPT/HCPCS: 99282

== ENCOUNTER 2024-05-22 11:49 | Emergency (ER) | payer MEDICAID, SELFPAY ==
[2024-05-22 11:49] VITALS: PULSE 92; RESP 20; TEMP 36.1; O2SAT 99; BMI 20.7
[2024-05-22 11:51] VITALS: BP 145/100
--- NOTE | 2024-05-22 12:00 | EDS_ITS ---
HPI History of Present Illness Chief Complaint: Back Detail of Chief Complaint: Back pain Informant: patient Onset/Context/Timing Current Severity: 04/02 Narrative Narrative: Patient presents the emergency department with complaint of back pain that has had for years. Patient states that he has the pain every day. He has not seen anybody for it. He denies any pain radiating down his legs. Patient denies loss of bowel or bladder function. He describes a tightness in his mid and lower back. He denies any falls or injuries. He denies any heavy lifting. Denies recent illness. Has had no fever. PFSH PFSH Home Medications ?Medication ?Instructions ?Recorded ?Last Taken ?Type cephalexin 500 mg capsule 500 mg PO Q6 #40 CAPSULES 03/17/24 Unknown Rx cyclobenzaprine 10 mg tablet 10 mg PO TID PRN Muscle Spasm #20 05/22/24 Unknown Rx TABLETS hydrocodone-acetaminophen 5-325mg 1 tab PO Q4H PRN PRN Pain 2 days 05/22/24 Unknown Rx 5mg-325mg #10 TABLETS naproxen 500 mg tablet 500 mg PO BID #14 tabs 05/22/24 Unknown Rx Allergy/AdvReac Type Severity Reaction Status Date / Time No Known Allergies Allergy Verified 03/17/24 09:21 Surgical History H/O heart surgery Social History Smoking Status: Current every day smoker tobacco type: e-cigarettes ROS ROS ED Review of Systems ROS Unobtainable: other Constitutional Constitutional ED: Reports lethargy; Denies chills, fever(s), sweats or weight loss Eyes Eyes: Denies blurry vision, change in vision or diplopia ENT ENT ED: Denies rhinorrhea or sore throat Cardiovascular Cardiovascular: Denies chest pain, orthopnea or racing heartbeat Respiratory/Chest Respiratory/Chest: Denies cough, dyspnea, dyspnea on exertion, orthopnea or sputum Gastrointestinal Gastrointestinal: Denies abdominal pain, diarrhea, nausea or vomiting Genitourinary Genitourinary ED: Denies dysuria, hematuria or urinary frequency Musculoskeletal Musculoskeletal: Reports back pain; Denies arthralgias, myalgias or neck pain Integumentary Denies abscess, Abrasions or rash Neurologic Neurologic: Denies headache(s) or weakness Psychiatric Psychiatric: Denies anxiety, depression or suicidal thoughts Endocrine Endocrinology: Denies polydipsia, polyphagia or polyuria Hematologic/Lymphatic Hematologic/Lymphatic: Denies easy bleeding, easy bruising or lymphadenopathy Allergic/Immunologic Allergic/Immunologic ED: Denies mouth swelling, tongue swelling or urticaria EXAM Physical Exam Const Vital Signs: 05/22/24 11:49 05/22/24 11:51 Temperature 97 F L Temperature Source Temporal Pulse Rate 92 Respiratory Rate 20 H Blood Pressure 145/100 H Blood Pressure Mean 115 Pulse Ox 99 Oxygen Delivery Method Room Air Positive well nourished and well developed General Appearance ED: well developed and NAD HEENT Reports TM's clear and moist mucous membranes normocephalic and atraumatic; Negative for trauma or tenderness Tympanic Membrane ED: Yes TM's clear Eyes PERRL and EOMs intact bilaterally General Eye ED: Negative for pale conjunctiva or scleral icterus Neck no lymphadenopathy, supple and no JVD General: Negative for tenderness Chest Wall inspection of chest normal and palpation of chest normal Chest: Negative for tenderness Resp normal respiratory effort and clear to auscultation bilaterally Effort and Inspection: Negative for respiratory distress or pain with movement Auscultation: Negative for rhonchi, wheezes or diminished lung sounds Cardio regular rate, regular rhythm, S1 normal heart sound, S2 normal heart sound and no murmurs Peripheral Pulses: pulses 2+ throughout GI normal to inspection, nondistended, normoactive bowel sounds, soft to palpation, non-tender, non-distended and no masses Back/Spine no CVA tenderness and no thoracic nor lumbar tenderness Back/Spine Narrative: Evaluation of his back reveals no abnormalities. There is no skin changes noted. No significant tenderness over the thoracic or lumbar spine. Patient has some mild tenderness over the lower thoracic and lumbar paraspinal musculature bilaterally. He has negative straight leg raises. Deep tendon reflexes plus 2 out of 4 bilaterally at the patella and Achilles. Patient has normal L5 extension bilaterally. Normal sensation to light touch bilaterally. Extremity normal to inspection General Extremety ED: Negative for edema General Extremity: Negative for edema Neuro oriented x3, CN's II-XII intact bilaterally, no sensory deficits noted and gait normal Sensorium / Orientation: awake, alert, oriented to person, oriented to place and oriented to time Motor Exam: strength 5/5 throughout and strength abnormal Psych mental status grossly normal Skin no rashes or lesions noted and no wounds MDM MDM MDM Narrative Medical decision making narrative: Patient presents the emergency department complaint of back pain that is chronic for years. No history of trauma. Clinically he looks well. No neurologic findings and no red flag symptoms of cauda equina. Discussed with patient potentially obtaining x-rays although without history of trauma I felt this was very low yield and he is in agreement. Will treat patient with Naprosyn as well as Flexeril and a few Wolf for pain. Refer to primary care physician for follow-up within the next 5 to 7 days Discharge Plan Triage Chief Complaint: Back ED Provider: Trish Castañead Dx/Rx/DC Orders Clinical Impression: Back pain Instructions: ED Back Pain (Acute or Chronic) Prescriptions: New cyclobenzaprine 10 mg tablet 10 mg PO TID PRN (Reason: Muscle Spasm) Qty: 20 0RF hydrocodone-acetaminophen 5-325 mg tablet 1 tab PO Q4H PRN PRN (Reason: Pain) 2 Days Qty: 10 0RF naproxen 500 mg tablet 500 mg PO BID Qty: 14 0RF No Action cephalexin 500 mg capsule 500 mg PO Q6 Qty: 40 0RF Primary Care Provider: Care Physician,No Primary Referrals: Quinton Castellanos MD [Med Staff - Active Staff] - 5-7 Days Care Physician,No Primary [Primary Care Provider] - Print Language: Citizen Of [place] Disposition Disposition: Home, Self Care
[2024-05-22 12:09] VITALS: BP 143/125; PULSE 70; RESP 16; TEMP 36.7; O2SAT 99
--- NOTE | 2024-05-22 12:41 | ED.RN ---
This RN walked in to clean pt's room after he had been discharged. Pt was sitting behind curtain in chair naked and masturbating. This RN verbalized pt was being inappropriate and needed to leave immediately. HRO notified and pt escorted out of department without incident.
== END 2024-05-22 12:10 | disposition home or self-care (01) ==
LOC: ED 12:09
PROVIDERS: Emergency Provider Emergency Medicine; Visit Provider Emergency Medicine
DX: M54.6 Pain in thoracic spine (principal); M54.50 Low back pain, unspecified; G89.29 Other chronic pain; F17.290 Nicotine dependence, other tobacco product, uncomplicated
CPT/HCPCS: 99282